=== PATIENT | male | born 1995 | race Caucasian/White ===

== ENCOUNTER 2018-04-02 20:04 | Emergency (ER) | payer BC, OTHER, SELFPAY ==
[2018-04-02 20:56] LABS: Bilirubin Negative (Negative); Blood, Urine Negative (Negative); Clarity CLEAR (Clear); Glucose, Urine (Dipstick) Negative (Negative); Leukocyte Negative (Negative); Nitrite Negative (Negative); Protein, Urine (Dipstick) Negative (Neg-Trace); pH, Urine 7.5 (5.0-9.0)
[2018-04-02] MEDS ORDERED: Ondansetron HCl/PF 4 MG/2 ML Vial ONE (21:11)
[2018-04-02] MEDS ORDERED: Ketorolac Tromethamine 30 MG/ML VIAL ONE (21:11)
[2018-04-02 21:17] LABS: #Lymphocytes 1.3 thou/uL (1.20-3.40); #Monocytes 0.7 thou/uL (0.11-0.59); %Basophils 0.1 % (0.0-1.0); %Eosinophils 0.5 % (0.0-10.0); %Lymphocytes 15.9 % (21.0-51.0); %Monocytes 9.1 % (0.0-10.0); %Neutrophils 74.4 % (42.0-75.0); Hemoglobin 15.7 g/dL (14.0-18.0); Mean Corpuscular HGB CONC 34.8 g/dL (32.0-36.0); Mean Corpuscular Volume 86.2 fL (78.0-98.0); Mean Platelet Volume 8.7 fL (7.4-10.4); Platelet Count 126 thou/uL (130-400); RBC Distribution Width 11.8 % (11.5-14.5); Red Blood Cell (RBC) Count 5.23 mill/uL (4.70-6.10); White Blood Cell (WBC) Count 8.1 thou/uL (4.8-10.8)
[2018-04-02] MEDS ORDERED: Morphine 4 MG/ML VIAL ONE (21:19)
[2018-04-02 21:37] LABS: Anion Gap 14 mmol/L (10-20); BUN (Urea Nitrogen) 10 mg/dL (8.9-20.6); CK (CPK) 101 U/L (30-200); Calc. Creatinine Clearance 0 mL/min (70-130); Calcium 9.6 mg/dL (7.8-10.44); Carbon Dioxide 22 mmol/L (22-29); Chloride 106 mmol/L (98-107); Estimated GFR-MDRD Greater than 90; Glucose 94 mg/dL (70-105); Potassium 3.6 mmol/L (3.5-5.1); Sodium 138 mmol/L (136-145)
--- NOTE | 2018-04-02 22:05 | ULT ---
SCROTAL ULTRASOUND: 04/02/2018 HISTORY: Right testicular pain. Fever. COMPARISON: None. TECHNIQUE: Multiplanar ji-scale sonographic imaging of the scrotal contents, with Doppler interrogation of the testicles, including color-flow and spectral analysis. FINDINGS: The right testicle measures 2.4 x 2.2 x 4.7 cm, and the left testicle measures 2.3 x 1.9 x 4.4 cm. There is a vague area of decreased echogenicity, with internal increased blood flow within the right testicle, measuring approximately 2 x 1.1 x 0.9 cm. The left testicle appears normal. There is a left-sided varicocele. There is a small right-sided hy drocele. The epididymis appears normal bilaterally. IMPRESSION: 1. Focal area of decreased echogenicity with increased blood flow within the right testicle. A foca l area of orchitis is favored. A tumor is less likely. Recommend a follow-up scrotal ultrasound, fo llowing treatment, to document resolution. 2. Left-sided varicocele. CODE T POS: [facility]
[2018-04-02] MEDS ORDERED: cefTRIAXone\\ROCEPHIN 2 GM VIAL ONE (22:14)
[2018-04-02] MEDS ORDERED: Sodium Chloride 0.9% 100 ML ONE (22:14)
[2018-04-03] MEDS ORDERED: HYDROcodone/Acetaminophen 10/325 mg Tablet ONE (00:55)
[2018-04-03] MEDS ORDERED: Azithromycin 250 MG TAB ONE ×3 (00:55→01:04)
== END 2018-04-03 01:18 | disposition home or self-care (01) ==
LOC: ERS 20:04
DX: N45.2 Orchitis (principal); Z87.891 Personal history of nicotine dependence
CPT/HCPCS: 36415; 76870; 80048; 81003; 82550; 83605; 85025; 87040; 87086; 96365; 96367; 96375; J0696; J1885; J1956; J2270; J2405; J7050

== ENCOUNTER 2018-04-10 06:40 | Emergency (ER) | payer SELFPAY ==
[2018-04-10] MEDS ORDERED: Ondansetron HCl/PF 4 MG/2 ML Vial ONE (07:06)
[2018-04-10] MEDS ORDERED: Morphine 4 MG/ML VIAL ONE ×2 (07:06→08:52)
[2018-04-10 07:15] LABS: #Eosinphils 0.2 thou/uL (0.0-0.7); #Lymphocytes 3.3 thou/uL (1.20-3.40); #Monocytes 0.8 thou/uL (0.11-0.59); %Basophils 0.4 % (0.0-1.0); %Eosinophils 2.2 % (0.0-10.0); %Lymphocytes 35.2 % (21.0-51.0); %Monocytes 8.9 % (0.0-10.0); %Neutrophils 53.3 % (42.0-75.0); Hemoglobin 15.9 g/dL (14.0-18.0); Mean Corpuscular HGB CONC 34.1 g/dL (32.0-36.0); Platelet Count 203 thou/uL (130-400); RBC Distribution Width 11.7 % (11.5-14.5); White Blood Cell (WBC) Count 9.4 thou/uL (4.8-10.8)
--- NOTE | 2018-04-10 07:42 | CT ---
CT ABDOMEN AND PELVIS WITHOUT CONTRAST STONE PROTOCOL: Date: 04/10/18 HISTORY: Right testicular pain. COMPARISON: Testicular ultrasound dated 04/02/18. FINDINGS: Lung bases are clear. No pericardial effusion. No nephroureterolithiasis or hydroureteronephrosis. No secondary evidence of a recently passed stone. No perinephric stranding. No dilated loops of large or small bowel. The appendix is visualized and is normal. No free intraperi toneal gas or fluid. Noncontrast evaluation of the spleen, liver, gallbladder, and pancreas are unremarkable. The aortoili ac contour is nonaneurysmal. Skeleton is unremarkable. No significant inflammatory stranding along either spermatic cord. IMPRESSION: 1. No nephroureterolithiasis or hydroureteronephrosis. No secondary evidence of recently passed ston e. 2. No other acute inflammatory process within the abdomen or pelvis. POS: [facility]
[2018-04-10 07:44] LABS: ALT (SGPT) 43 U/L (8-55); AST (SGOT) 30 U/L (5-34); Albumin 4.5 g/dL (3.5-5.0); Alkaline Phosphatase 59 U/L (40-150); Anion Gap 13 mmol/L (10-20); BUN (Urea Nitrogen) 12 mg/dL (8.9-20.6); Bilirubin, Total 0.6 mg/dL (0.2-1.2); Calc. Creatinine Clearance 0 mL/min (70-130); Calcium 9.6 mg/dL (7.8-10.44); Carbon Dioxide 24 mmol/L (22-29); Chloride 105 mmol/L (98-107); Estimated GFR-MDRD Greater than 90; Glucose 107 mg/dL (70-105); Potassium 4.1 mmol/L (3.5-5.1); Protein, Total 7.5 g/dL (6.0-8.3); Sodium 138 mmol/L (136-145)
--- NOTE | 2018-04-10 08:35 | ULT ---
ULTRASOUND TESTICULAR WITH DOPPLER: Date: 04/10/18 HISTORY: Testicular pain. COMPARISON: Ultrasound dated 04/02/18. TECHNIQUE: Real-time Castro scale with color Doppler and spectral analysis of the testicles performed. In the right testicle, there is a focal area of hypoechogenicity, which on today's exam has decreased flow relative to the prior exam. The area of decreased echogenicity has increased from the compariso n examination in size. This is likely healing infection and less likely phlegmonous changes. No intra testicular abscess is yet seen. There is also increased size of the right epididymis since the prior examination, which has thickened. The skin over the right testicle is markedly thickened. Right testicle measures 4.2 x 2.4 x 2.4 cm. Left testicle measures 4.3 x 2.4 x 2.4 cm. Small right hydrocele. IMPRESSION: 1. Increased size of the hypoechoic area within the right testicle, likely healing infection, as the re is decreased blood flow from the comparison examination. There is possible development of phlegmon ous changes without a definite intratesticular abscess. 2. Increased size of the right epididymis, likely now epididymo-orchitis. 3. Small reactive right hydrocele. 4. Extensive skin thickening over the right testicle, likely a component of cellulitis and reactive thickening. A follow-up is definitely recommended within 6 weeks. If the testicular pain does not imp rove after medication within 1-2 weeks, a follow-up examination can be recommended at that time to ev aluate for intratesticular abscess formation. POS: [facility]
[2018-04-10] MEDS ORDERED: Cephalexin 250 MG CAP ONE (08:52)
[2018-04-10] MEDS ORDERED: Sulfameth/Trimethoprim DS 800-160mg TAB ONE (08:52)
[2018-04-10 09:13] LABS: Bilirubin Negative (Negative); Blood, Urine Negative (Negative); Clarity CLEAR (Clear); Glucose, Urine (Dipstick) Negative (Negative); Leukocyte Negative (Negative); Nitrite Negative (Negative); Protein, Urine (Dipstick) Negative (Neg-Trace); Specific Gravity, Urine 1.013 (1.002-1.036); Urobilinogen 0.2 mg/dL (0.2-1.0); pH, Urine 7.5 (5.0-9.0)
[2018-04-12 01:41] LABS: Chlamydia by PCR Not Detected (NotDetected); GC by PCR Not Detected (NotDetected)
== END 2018-04-10 09:25 | disposition home or self-care (01) ==
LOC: ERS 06:40
DX: N45.2 Orchitis (principal); N49.2 Inflammatory disorders of scrotum; F90.9 Attention-deficit hyperactivity disorder, unspecified type; F17.210 Nicotine dependence, cigarettes, uncomplicated; Z79.899 Other long term (current) drug therapy
CPT/HCPCS: 74176; 76870; 80053; 81003; 85025; 87086; 87491; 87591; 93976; 96374; 96375; 96376; 99406; J2270; J2405

== ENCOUNTER 2018-11-27 23:45 | Emergency (ER) | payer SELFPAY | END 2018-11-28 00:56 | disposition home or self-care (01) | LOC: ERS 23:45 | DX: R11.2 Nausea with vomiting, unspecified (principal); R19.7 Diarrhea, unspecified; F90.9 Attention-deficit hyperactivity disorder, unspecified type; F17.210 Nicotine dependence, cigarettes, uncomplicated | CPT/HCPCS: 99283 ==

== ENCOUNTER 2021-08-29 01:21 | Emergency (ER) | payer OTHER, SELFPAY | END 2021-08-29 02:17 | LOC: ERS 01:21 | DX: M25.512 Pain in left shoulder (principal); F17.210 Nicotine dependence, cigarettes, uncomplicated; V89.2XXA Person injured in unspecified motor-vehicle accident, traffic, initial encounter | CPT/HCPCS: 99284 ==

== ENCOUNTER 2022-02-21 08:27 | Emergency (ER) | payer SELFPAY ==
[2022-02-21] MEDS ORDERED: VANCOMYCIN 2 GRAM/500 ML BAG 2 GM in Premix Bag 1 BAG IVPB SCH (09:15)
[2022-02-21] MEDS ORDERED: Morphine 4 MG/ML VIAL ONE (09:18)
[2022-02-21] MEDS ORDERED: Cefepime 2 GM VIAL ONE (09:18)
[2022-02-21 09:22] LABS: #Eosinphils 0.1 thou/uL (0.0-0.7); #Lymphocytes 2.3 thou/uL (1.20-3.40); #Monocytes 1.7 thou/uL (0.11-0.59); #Neutrophils 9.3 thou/uL (1.40-6.50); %Eosinophils 1.1 % (0.0-10.0); %Lymphocytes 17.3 % (21.0-51.0); %Monocytes 12.4 % (0.0-10.0); %Neutrophils 69.2 % (42.0-75.0); Hemoglobin 16.4 g/dL (14.0-18.0); Mean Corpuscular HGB CONC 34.9 g/dL (32.0-36.0); Mean Corpuscular Volume 88.8 fL (78.0-98.0); Mean Platelet Volume 7.8 fL (7.4-10.4); Platelet Count 152 thou/uL (130-400); RBC Distribution Width 12.1 % (11.5-14.5); Red Blood Cell (RBC) Count 5.29 mill/uL (4.70-6.10); White Blood Cell (WBC) Count 13.4 thou/uL (4.8-10.8)
[2022-02-21 09:31] LABS: Prothrombin Time 12.8 sec (12.0-14.7)
[2022-02-21 09:43] LABS: ALT (SGPT) 72 U/L (8-55); AST (SGOT) 41 U/L (5-34); Albumin 4.5 g/dL (3.5-5.0); Alkaline Phosphatase 69 U/L (40-110); Anion Gap 16 mmol/L (10-20); BUN (Urea Nitrogen) 10 mg/dL (8.9-20.6); Calc. Creatinine Clearance 0 mL/min (70-130); Calcium 9.6 mg/dL (7.8-10.44); Carbon Dioxide 23 mmol/L (22-29); Chloride 100 mmol/L (98-107); Estimated GFR 115; Globulin 3.1 g/dL (2.4-3.5); Glucose 102 mg/dL (70-105); Potassium 3.9 mmol/L (3.5-5.1); Protein, Total 7.6 g/dL (6.0-8.3); Sodium 135 mmol/L (136-145)
[2022-02-21 10:18] LABS: SARS-CoV-2 NAA Rapid Test Not Detected (NotDetected)
[2022-02-21] MEDS ORDERED: Lidocaine 1% PF 5 ML VIAL ONE (10:38)
[2022-02-21] MEDS ORDERED: Lidocaine 1%/Epinephrine 1:100K 10 ML VIAL IJ SCH (11:00)
[2022-02-21] MEDS ORDERED: Iopamidol-370 76% 500 ML 1 ML ONE (15:41)
== END 2022-02-21 13:58 | disposition home or self-care (01) ==
LOC: ERS 08:27
DX: K61.0 Anal abscess (principal); Z20.822 Contact with and (suspected) exposure to COVID-19; F17.210 Nicotine dependence, cigarettes, uncomplicated
CPT/HCPCS: 36415; 74177; 80053; 83605; 85025; 85610; 85730; 86140; 87070; 87076; 87205; 96365; 96366; 96367; 96375; J0692; J2270; J3370; Q9967; U0002

== ENCOUNTER 2022-07-21 07:35 | Emergency (ER) | payer SELFPAY ==
[2022-07-21] MEDS ORDERED: Ketorolac Tromethamine 30 MG/ML VIAL ONE (08:45)
[2022-07-21 08:56] LABS: #Eosinphils 0.2 thou/uL (0.0-0.7); #Lymphocytes 2.4 thou/uL (1.20-3.40); #Monocytes 1.2 thou/uL (0.11-0.59); #Neutrophils 7.3 thou/uL (1.40-6.50); %Basophils 0.3 % (0.0-1.0); %Eosinophils 1.6 % (0.0-10.0); %Lymphocytes 21.5 % (21.0-51.0); %Monocytes 10.5 % (0.0-10.0); Hemoglobin 16.5 g/dL (14.0-18.0); Mean Corpuscular HGB CONC 32.7 g/dL (32.0-36.0); Mean Corpuscular Hemoglobin 29.6 pg (27.0-31.0); Mean Corpuscular Volume 90.6 fl (78.0-98.0); Mean Platelet Volume 8.3 fL (7.4-10.4); Platelet Count 168 10x3/uL (130-400); RBC Distribution Width 11.8 % (11.5-14.5); Red Blood Cell (RBC) Count 5.57 mill/uL (4.70-6.10)
[2022-07-21 09:23] LABS: ALT (SGPT) 74 U/L (8-55); AST (SGOT) 46 U/L (5-34); Albumin 4.4 g/dL (3.5-5.0); Alkaline Phosphatase 61 U/L (40-110); Anion Gap 13 mmol/L (10-20); BUN (Urea Nitrogen) 11 mg/dL (8.9-20.6); Bilirubin, Total 1.1 mg/dL (0.2-1.2); CK (CPK) 149 U/L (30-200); CRP (Inflammatory) 2.45 mg/dL (= or < 0.5); Calc. Creatinine Clearance 0 mL/min (70-130); Calcium 9.8 mg/dL (7.8-10.44); Carbon Dioxide 24 mmol/L (22-29); Chloride 106 mmol/L (98-107); Estimated GFR 118; Glucose 102 mg/dL (70-105); Potassium 4.6 mmol/L (3.5-5.1); Protein, Total 7.4 g/dL (6.0-8.3); Sodium 138 mmol/L (136-145)
[2022-07-21] MEDS ORDERED: Iopamidol-370 76% 500 ML 1 ML ONE (09:47)
== END 2022-07-21 10:19 | disposition home or self-care (01) ==
LOC: ERS 07:35
DX: L03.315 Cellulitis of perineum (principal); D72.829 Elevated white blood cell count, unspecified; F17.210 Nicotine dependence, cigarettes, uncomplicated
CPT/HCPCS: 36415; 74177; 80053; 82550; 85025; 86140; 96374; J1885; Q9967

== ENCOUNTER 2022-07-22 11:02 | Emergency (ER) | payer SELFPAY ==
[2022-07-22] MEDS ORDERED: HYDROcodone/Acetaminophen 5/325 mg Tablet ONE (11:58)
[2022-07-22] MEDS ORDERED: Ketorolac Tromethamine 30 MG/ML VIAL ONE (11:58)
[2022-07-22 12:26] LABS: #Eosinphils 0.2 thou/uL (0.0-0.7); #Lymphocytes 1.7 thou/uL (1.20-3.40); #Monocytes 1.2 thou/uL (0.11-0.59); #Neutrophils 10.3 thou/uL (1.40-6.50); %Basophils 0.2 % (0.0-1.0); %Eosinophils 1.3 % (0.0-10.0); %Lymphocytes 12.7 % (21.0-51.0); %Neutrophils 76.8 % (42.0-75.0); Hemoglobin 15.4 g/dL (14.0-18.0); Mean Corpuscular HGB CONC 33.4 g/dL (32.0-36.0); Mean Corpuscular Hemoglobin 29.8 pg (27.0-31.0); Mean Corpuscular Volume 89.3 fl (78.0-98.0); Mean Platelet Volume 8.3 fL (7.4-10.4); Platelet Count 159 10x3/uL (130-400); RBC Distribution Width 11.8 % (11.5-14.5); Red Blood Cell (RBC) Count 5.18 mill/uL (4.70-6.10); White Blood Cell (WBC) Count 13.5 10x3/uL (4.8-10.8)
[2022-07-22 12:58] LABS: ALT (SGPT) 66 U/L (8-55); AST (SGOT) 36 U/L (5-34); Albumin 4.5 g/dL (3.5-5.0); Alkaline Phosphatase 61 U/L (40-110); Anion Gap 12 mmol/L (10-20); BUN (Urea Nitrogen) 12 mg/dL (8.9-20.6); Bilirubin, Total 1.2 mg/dL (0.2-1.2); Calc. Creatinine Clearance 0 mL/min (70-130); Calcium 9.6 mg/dL (7.8-10.44); Carbon Dioxide 27 mmol/L (22-29); Chloride 104 mmol/L (98-107); Estimated GFR 125; Glucose 94 mg/dL (70-105); Potassium 3.9 mmol/L (3.5-5.1); Protein, Total 7.5 g/dL (6.0-8.3); Sodium 139 mmol/L (136-145)
== END 2022-07-22 15:06 | disposition home or self-care (01) ==
LOC: ERS 11:02
DX: L03.315 Cellulitis of perineum (principal); D72.829 Elevated white blood cell count, unspecified; F17.210 Nicotine dependence, cigarettes, uncomplicated
CPT/HCPCS: 74177; 80053; 85025; 96374; J1885

== ENCOUNTER 2022-07-27 12:12 | Emergency (ER) | payer SELFPAY ==
[2022-07-27] MEDS ORDERED: Lidocaine 1% w/Epinephrine 1:100K 20 ML VIAL ONE (13:17)
[2022-07-27] MEDS ORDERED: Ketorolac Tromethamine 30 MG/ML VIAL ONE (13:20)
[2022-07-27] MEDS ORDERED: Fentanyl 100 MCG/2 ML VIAL ONE (13:20)
[2022-07-27] MEDS ORDERED: Clindamycin/D5W 900 mg/50 ml Premix Bag ONE (14:15)
== END 2022-07-27 15:37 | disposition home or self-care (01) ==
LOC: ERS 12:12
DX: L02.31 Cutaneous abscess of buttock (principal); F17.210 Nicotine dependence, cigarettes, uncomplicated
CPT/HCPCS: 10060; 96374; 96375; J1885; J3010; J3490

== ENCOUNTER 2023-04-05 16:54 | Emergency (ER) | payer SELFPAY ==
[~2023-04-05 16:54] MED LIST: Iopamidol-370 76% 500 ML MDV (1 ML CHARGE) ONE
[2023-04-05 19:03] LABS: #Basophils 0.1 thou/uL (0.0-0.2); #Eosinphils 0.2 thou/uL (0.0-0.7); #Monocytes 0.7 thou/uL (0.11-0.59); #Neutrophils 4.9 thou/uL (1.40-6.50); %Basophils 0.8 % (0.0-1.0); %Eosinophils 2.5 % (0.0-10.0); %Lymphocytes 26.4 % (21.0-51.0); %Monocytes 8.2 % (0.0-10.0); %Neutrophils 61.7 % (42.0-75.0); Hematocrit 47.7 % (42.0-52.0); Hemoglobin 16.1 g/dL (14.0-18.0); Mean Corpuscular HGB CONC 33.8 g/dL (32.0-36.0); Mean Corpuscular Hemoglobin 29.9 pg (27.0-31.0); Mean Corpuscular Volume 88.7 fl (78.0-98.0); Mean Platelet Volume 10.1 fL (7.4-10.4); Platelet Count 182 10x3/uL (130-400); RBC Distribution Width 12.9 % (11.5-14.5); Red Blood Cell (RBC) Count 5.38 mill/uL (4.70-6.10); White Blood Cell (WBC) Count 7.9 10x3/uL (4.8-10.8)
[2023-04-05 19:30] LABS: ALT (SGPT) 78 U/L (8-55); AST (SGOT) 50 U/L (5-34); Alkaline Phosphatase 62 U/L (40-110); Anion Gap 14 mmol/L (10-20); BUN (Urea Nitrogen) 14 mg/dL (8.9-20.6); Bilirubin, Total 0.7 mg/dL (0.2-1.2); Calc. Creatinine Clearance 0 mL/min (70-130); Calcium 9.9 mg/dL (7.8-10.44); Carbon Dioxide 25 mmol/L (22-29); Chloride 103 mmol/L (98-107); Estimated GFR 113; Globulin 2.8 g/dL (2.4-3.5); Glucose 107 mg/dL (70-105); Protein, Total 7.8 g/dL (6.0-8.3); Sodium 138 mmol/L (136-145)
== END 2023-04-05 21:00 | disposition home or self-care (01) ==
LOC: ERS 16:54
DX: L02.91 Cutaneous abscess, unspecified (principal); F17.210 Nicotine dependence, cigarettes, uncomplicated
CPT/HCPCS: 74177; 80053; 83605; 85025; Q9967